=== PATIENT | female | born 1970 | race Caucasian/White ===

== ENCOUNTER 2024-06-07 17:00 | Emergency (ER) | payer OTHER ==
[~2024-06-07] VITALS: Ht 172.7 cm; Wt 77.1 kg
[2024-06-07] MEDS ORDERED: IBUPROFEN 400 MG TABLET ONE (17:54)
[2024-06-07] MEDS: IBUPROFEN 400 MG TABLET PO ONE (17:56)
[2024-06-07 18:25] LABS: *URINE HCG, QUAL NEGATIVE (NEGATIVE)
[2024-06-07 19:44] VITALS: BP 121/75; TEMP 97.7; O2SAT 99
== END 2024-06-07 19:30 | disposition left against medical advice (07) ==
LOC: ER 17:02
DX: Z04.1 Encounter for examination and observation following transport accident (principal); R10.2 Pelvic and perineal pain; E03.9 Hypothyroidism, unspecified; V09.9XXA Pedestrian injured in unspecified transport accident, initial encounter; Y93.89 Activity, other specified; Y92.89 Other specified places as the place of occurrence of the external cause; Y99.8 Other external cause status
CPT/HCPCS: 71250; 72125; 72131; 73060; 73090; 73551; 73590; 84703; A4606; A4663

== ENCOUNTER 2024-11-21 09:43 | Emergency (ER) | payer OTHER ==
[~2024-11-21] VITALS: Ht 172.7 cm; Wt 79.4 kg
[2024-11-21 11:02] VITALS: BP 100/63; O2SAT 100
== END 2024-11-21 11:03 | disposition home or self-care (01) ==
LOC: ER 09:43
DX: S63.634A Sprain of interphalangeal joint of right ring finger, initial encounter (principal); M79.641 Pain in right hand; E03.9 Hypothyroidism, unspecified; E86.0 Dehydration; W18.39XA Other fall on same level, initial encounter; Y93.89 Activity, other specified; Y92.89 Other specified places as the place of occurrence of the external cause; Y99.8 Other external cause status
CPT/HCPCS: 73130; A4606; A4663